=== PATIENT | female | born 1945 | race Hispanic/Latino ===

== ENCOUNTER → 2019-06-15 | Outpatient (CLI) | payer MEDICARE ==
[~2019-06-15] MED LIST: ASPIR 8181 MG PO; DIVALPROEX SOD250 MG PO; GEODON; LISINOPRIL; LISINOPRIL10 MG PO; METFORMIN HCL500 MG PO; PROPRANOLOL; PROPRANOLOL HCL10 MG PO; SIMVASTATIN20 MG PO; VALPROIC ACID; ZIPRASIDONE HCL20 MG PO
--- NOTE | 2019-06-15 14:02 | Diagnostic Imaging Report ---
EXAMINATION: CHEST 2 VIEWS INDICATION: Pre-operative COMPARISON: None FINDINGS: LINES/TUBES:None LUNGS:The lungs are well-inflated. No focal consolidation or pulmonary edema. PLEURA:No pleural effusion or pneumothorax. MEDIASTINUM:The cardiomediastinal silhouette appears normal in size and shape. Circular opacity overlying the right hilum represents part of a sling that is external to the patient. Atherosclerotic calcifications of the thoracic aorta. BONES/SOFT TISSUES:No acute osseous injury. ABDOMEN:No free air under the diaphragm. IMPRESSION: No focal pneumonia or pulmonary edema. Signed by: Sandy Draper MD on 06/15/2019 1:59 PM
== END ==
LOC: RAD 13:19
PROVIDERS: ATTEND Internal Medicine
DX: Z01.818 Encounter for other preprocedural examination (principal)
CPT/HCPCS: 71046; 93005

== ENCOUNTER 2019-06-22 09:45 | Observation (INO) | payer MEDICARE ==
[~2019-06-22] VITALS: Ht 142.2 cm; Wt 72.6 kg
[~2019-06-22 09:45] MED LIST changes: +HEPARIN SOD/SOD CHLORIDE 1,000 ML ONE
--- OUTSIDE RECORDS SUMMARY | 2019-06-22 09:48 | XMS REPORT ---
Author Author [facility] Address Unknown Phone Unavailable Care Team Providers Care Meat Process Worker Name Role Phone NILTON DURAN Unavailable Unavailable Payers Payer Name Policy Type Policy Number Effective Date Expiration Date Problems This patient has no known problems. Allergies, Adverse Reactions, Alerts Allergy Name Allergy Type Status Severity Reaction(s) Onset Date Inactive Date Treating Clinician Comments No Known Allergies DA Active U 2019-05-19 00:00:00 Medications This patient has no known medications. Encounters Start Date/Time End Date/Time Encounter Type Admission Type Attending Clinicians Care Facility Care Department Encounter ID 2019-06-06 18:20:00 2019-06-06 18:20:00 Emergency E [facility] MED [id number] 2019-06-01 19:25:00 2019-06-01 19:25:00 Emergency E [facility] 7500 Results Test Description Test Time Test Comments Text Results Atomic Results Result Comments CHEST 2 VIEWS 2019-06-15 13:57:00 [facility] [address] [place], [place] [address] Patient Name: JAISON CASH MR #: [id number] : 1945 Age/Sex: 73/F Req #: [id number] Adm Physician: Ordered by: NILTON DURAN MD Report #: [id number] Location: [facility] Room/Bed: Procedure: [id number] DX/CHEST 2 VIEWS Exam Date: 06/15/19 Exam Time: 1345 REPORT STATUS: Signed EXAMINATION: CHEST 2 VIEWS INDICATION: Pre-operative COMPARISON: None FINDINGS: LINES/TUBES:None LUNGS:The lungs are well-inflated. No focal consolidation or pulmonary edema. PLEURA:No pleural effusion or pneumothorax. MEDIASTINUM:The cardiomediastinal silhouette appears normal in size and shape. Circular opacity overlying the right hilum represents part of a sling that is external to the patient. Atherosclerotic calcifications of the thoracic aorta. BONES/SOFT TISSUES:No acute osseous injury. ABDOMEN:No free air under the diaphragm. IMPRESSION: No focal pneumonia or pulmonary edema. Si gned by: Isha Draper MD on 06/15/2019 1:59 PM Dictated By: ISHA DRAPER MD [id number] Transcribed By: ARUNA on 06/15/19 0472 COPY TO: NILTON DURAN MD
[2019-06-22] MEDS ORDERED: DEXAMETHASONE SOD PHOS 10 MG/1 ML VIAL ONE (10:22)
[2019-06-22] MEDS ORDERED: CELECOXIB 200 MG CAP ONE (10:22)
[2019-06-22] MEDS ORDERED: GABAPENTIN 300 MG CAP ONE ×2 (10:23→10:27)
[2019-06-22] MEDS ORDERED: CEFAZOLIN SOD 1 GM/NS 50ML 100 ML IV ONE (10:23)
[2019-06-22] MEDS ORDERED: VANCOMYCIN HCL 1 GM VIAL ONE (11:41)
[2019-06-22] MEDS ORDERED: BUPIVACAINE 0.25%/EPI 30ML SDV INJ ONE (11:41)
[2019-06-22] MEDS ORDERED: TRANEXAMIC ACID 1,000 MG/10 ML ML ONE (11:41)
[2019-06-22] MEDS ORDERED: SODIUM CHLORIDE 0.9% 500ML 500 ML ONE (11:49)
[2019-06-22] MEDS ORDERED: ACETAMINOPHEN 1000 MG/100 ML 100 ML IV ONE (12:58)
[2019-06-22] MEDS ORDERED: HYDROCODONE/APAP 7.5MG-325MG 1 EA TAB PO PRN (13:30)
[2019-06-22] MEDS ORDERED: KETOROLAC TROMETHAMINE 30 MG/ML VIAL IV PRN (13:30)
[2019-06-22] MEDS ORDERED: ZOLPIDEM TARTRATE 5 MG TAB PO PRN (13:30)
[2019-06-22] MEDS ORDERED: ONDANSETRON HCL INJ 2MG/ML 2ML 2 MG/ML VIAL IV PRN (13:30)
[2019-06-22] MEDS ORDERED: PROMETHAZINE HCL (IM) 25 MG/ML VIAL INJ PRN (13:30)
[2019-06-22] MEDS ORDERED: ACETAMINOPHEN 650 MG SUPP PR PRN (13:30)
[2019-06-22] MEDS ORDERED: DOCUSATE SODIUM 100 MG CAP PO PRN (13:30)
[2019-06-22] MEDS ORDERED: DIPHENHYDRAMINE HCL INJ 50 MG/ML VIAL IM/IV PRN (13:30)
[2019-06-22] MEDS ORDERED: PHENYLEPHRINE HCL 1% 10 MG/ML VIAL ONE (14:26)
[2019-06-22] MEDS ORDERED: NEOSTIGMINE 5 MG/5ML SYR ONE (14:26)
[2019-06-22] MEDS ORDERED: ONDANSETRON HCL INJ 2MG/ML 2ML 2 MG/ML VIAL ONE (14:26)
[2019-06-22] MEDS ORDERED: DEXAMETHASONE SOD PHOS INJ 4 MG/ML VIAL ONE (14:26)
[2019-06-22] MEDS ORDERED: ROCURONIUM BROMIDE 10 MG/ML 5ML VIAL ONE (14:26)
[2019-06-22] MEDS ORDERED: GLYCOPYRROLATE INJ 1MG/ 5 ML SYR ONE (14:26)
[2019-06-22] MEDS ORDERED: PROPOFOL IV EMULSION 10 MG/ML 20 ML VIAL ONE (14:26)
[2019-06-22] MEDS ORDERED: LIDOCAINE HCL 2% LOCAL INJ 5 ML SDV VIAL INJ ONE (14:26)
[2019-06-22] MEDS ORDERED: SEVOFLURANE INHAL SOLN 250 ML PEN BTL ONE (14:26)
[2019-06-22] MEDS ORDERED: ROPIVACAINE 0.5% 5 MG/ML 30 ML SDV ONE (14:48)
[2019-06-22] MEDS ORDERED: LIDOCAINE HCL 2% LOCAL 20 ML VIAL ONE (14:48)
[2019-06-22] MEDS ORDERED: FENTANYL CITRATE/PF 100MCG/2 ML INJ ONE (15:01)
[2019-06-22] MEDS ORDERED: MIDAZOLAM HCL 2 MG/2 ML VIAL ONE (15:01)
--- NOTE | 2019-06-22 15:05 | Diagnostic Imaging Report ---
EXAMINATION: SHOULDER RIGHT 1 VIEW INDICATION: Postoperative COMPARISON: None FINDINGS: Portable AP image of the right shoulder was obtained. There are postoperative findings of interval right shoulder hemiarthroplasty. Alignment is near-anatomic. There is postoperative subcutaneous emphysema. Overlying surgical skin manuela in place. No focal consolidation of the partially visualized right lung. IMPRESSION: Anatomic alignment status post interval right shoulder hemiarthroplasty. Signed by: Sandy Draper MD on 06/22/2019 3:02 PM
[2019-06-22] MEDS: SODIUM CHLORIDE 0.9% 1000ML 1,000 ML IV SCH (15:52)
[2019-06-22 16:59] VITALS: BP 159/70
[2019-06-22 17:30] VITALS: BP 159/70
[2019-06-22 17:31] VITALS: BP 159/70
[2019-06-22] MEDS: CELECOXIB 200 MG CAP PO SCH (17:37)
[2019-06-22] MEDS: ASPIRIN 325 MG TAB PO SCH (17:37)
[2019-06-22] MEDS: ACETAMINOPHEN 1000 MG/100 ML IV SCH (17:38)
[2019-06-22 20:00] VITALS: BP 134/60
[2019-06-22] MEDS: CEFAZOLIN SOD 1 GM/NS 50ML 50 ML IV SCH (20:00)
--- NOTE | 2019-06-22 20:00 | NUR ---
Received change of shift report from AM nurse. Walking rounds completed.
--- NOTE | 2019-06-22 20:10 | Operative Report ---
DATE OF PROCEDURE: 06/22/2019 SURGEON: Tevin Jorgensen MD PAPERHANGER PIPE: Richard Mike PA-C PREOPERATIVE DIAGNOSIS: Comminuted 4-part right proximal humerus fracture. POSTOPERATIVE DIAGNOSIS: Comminuted 4-part right proximal humerus fracture. PROCEDURE: Right shoulder hemiarthroplasty. INDICATIONS: The patient is a medically frail 73-year-old lady, who has a fracture of her right proximal humerus. The findings and options have been discussed. We have recommended a right shoulder hemiarthroplasty. The risks and benefits and realistic expectations have been discussed. She states she understands and wishes to proceed. PROCEDURE IN DETAIL: The patient was brought to the operating room and placed under general anesthetic. She received a regional block and prophylactic antibiotics in the holding area. She was positioned in the beach chair position on the shoulder table. Her right upper extremity was prepped and draped in a sterile manner. A preoperative time-out was performed. A 10 mL of 0.5% Marcaine with epinephrine had been injected into the axillary fold during prepping. An incision was made over the anterior aspect of the right shoulder. The deltopectoral interval was identified. Hemostasis was obtained along the way with electrocautery. The subdeltoid tissue was freed up to allow placement of a Best [place] self-retaining retractor. This was placed into the conjoined tendon in the deltoid. The fracture sites were palpated. The lesser tuberosity was gently mobilized. Retention stitches were placed in the myotendinous junction. The same was done with the greater tuberosity. There was some persistent soft tissue attachments I wanted to preserve. The biceps tendon was released. The humeral head could be visualized and was removed from the joint using a towel clamp. This was sized at roughly 40 mm in diameter. The fracture was further mobilized. A NuScriptRx global fracture system was used. The canal was reamed and broached. The size 10 reamer had good endosteal contact. A size 10 stem had good rotational stability. A trial reduction was made with a 40 mm x 15 mm humeral head provided appropriate mandaen of length and stability. The trial implants were removed. The shoulder was thoroughly irrigated with sterile saline. The implants were opened on the back table and the press-fit stem was impacted into the humeral shaft. Good stability was accomplished. The humeral head was seated onto the clean and dry stem. The stem had previously had #1 FiberWire stitches placed so that they could circumferentially encase and secure the greater and lesser tuberosities. Time and care were taken to repair the greater tuberosities to the anterior and superior aspect of the proximal humerus. A cerclage FiberWire was placed around the split in the humeral shaft as well. The rotator interval was repaired with interrupted #1 ethibond stitches. The wound was further irrigated. The skin was closed with subcuticular Vicryl and manuela. A sterile bandage and an UltraSling were applied. Estimated blood loss was 100 mL. All needle and sponge counts were correct. Tevin Jorgensen MD DR/KENDALL /[id number] MTDD
[2019-06-22] MEDS: HYDROCODONE/APAP 5MG-325MG TAB PO PRN (20:48)
[2019-06-23] VITALS: BP 118/65
[2019-06-23] MEDS: SODIUM CHLORIDE 0.9% 1000ML 1,000 ML IV SCH ×2 (03:00→09:31)
[2019-06-23] MEDS: CEFAZOLIN SOD 1 GM/NS 50ML 50 ML IV SCH ×2 (03:42→11:39)
[2019-06-23 04:00] VITALS: BP 142/62
--- NOTE | 2019-06-23 05:00 | NUR ---
Received pain and nausea meds x2. Resting quitly at this time.
[2019-06-23] MEDS: ACETAMINOPHEN 1000 MG/100 ML IV SCH ×3 (05:41→14:16)
[2019-06-23] MEDS: HYDROCODONE/APAP 5MG-325MG TAB PO PRN ×2 (06:09→11:39)
[2019-06-23 06:18] LABS: HEMATOCRIT 29.8 % (34.2-44.1); HEMOGLOBIN 9.8 g/dL (12.0-16.0)
[2019-06-23 07:26] VITALS: BP 146/61
[2019-06-23] MEDS: CELECOXIB 200 MG CAP PO SCH (09:19)
[2019-06-23] MEDS: ASPIRIN 325 MG TAB PO SCH (09:19)
[2019-06-23 09:26] VITALS: BP 146/61
--- NOTE | 2019-06-23 12:35 | Consultation ---
DATE OF CONSULTATION: REASON FOR CONSULTATION: Postop medical management. HISTORY OF PRESENT ILLNESS: The patient is a 73-year-old lady, status post right shoulder replacement, who is doing well postoperatively and has minimal pain in her right shoulder. REVIEW OF SYSTEMS: Denies on review of systems any fever, chills, nausea, vomiting, headache, shortness of breath, dizziness, or chest pains. PAST MEDICAL HISTORY: Significant for hypertension, hyperlipidemia, and diabetes. MEDICATIONS: See MAR. ALLERGIES: NONE. SOCIAL HISTORY: PHYSICAL EXAMINATION: VITAL SIGNS: Temperature 96.5, pulse 65, blood pressure 134/60, sats 94% on room air. GENERAL: She is in no apparent distress, lying in bed. NECK: Supple. No lymphadenopathy. CARDIOVASCULAR: Regular rate and rhythm. LUNGS: Clear to auscultation bilaterally. ABDOMEN: Good bowel sounds. Soft, nontender. EXTREMITIES: No clubbing or cyanosis. The right shoulder is in a brace. She has 2+ radial pulses on the right. NEUROVASCULAR: Intact on the right. ASSESSMENT AND PLAN: 1. Right shoulder pain, status post right shoulder hemiarthroplasty. We will continue with postoperative care. 2. Anemia. Check a CBC. 3. Hypertension. Continue with current care and monitoring. 4. Diabetes. Continue to monitor her sugars. 5. Hyperlipidemia. We will restart cholesterol medicines at discharge. Please see hospital chart for details. MD JUN Sol/KENDALL /[id number]
[2019-06-23 13:06] VITALS: BP 122/59
[2019-06-23] MEDS ORDERED: HYDRALAZINE HCL 20 MG/ML VIAL IV PRN (13:15)
[2019-06-23] MEDS ORDERED: ACETAMINOPHEN 1000 MG/100 ML IV PRN (13:30)
--- NOTE | 2019-06-23 15:00 | NUR ---
Visit made by the Spiritual Care Department Pastoral Visitor, Dionne Dupree. PV provided pastoral presence, prayer, hospitality, and supportive listening. Pastoral Visitor informed pt/family of the scope of [employer] and availability. BROCK VALDEZ Solar Project Coordination Specialist Spiritual Care Department O: [phone] Pager: [phone] ([phone] number calling from)
--- NOTE | 2019-06-23 15:49 | NUR ---
PATIENT COMPLAINED THAT SHE NEEDS HELP AT HOME CALLED [facility]N MEYER FOR DR. AGUSTIN TO REQUEST CONSULT FOR CASE MANAGEMENT
[2019-06-23 16:01] VITALS: BP 125/58
--- NOTE | 2019-06-23 16:25 | NUR ---
CM CALLED TO PT'S ROOM BY PT'S NURSE REY STATING PT IS REQUESTING HOME HEALTH CARE PT'S DTR AT BEDSIDE, AKIN CASH [phone] THEY ARE REQUESTING HOME HEALTH "SO SOMEONE CAN HELP HER GET AROUND" PT LIVES WITH HER , GROWN SON AND 4 GRAND CHILDREN PT'S DTR AKIN WILL BE WITH PT FOR NEXT 3 DAYS AND THEN WILL HAVE TO GO BACK TO WORK EXPLAINED THAT CRITERIA MUST BE MET FOR INSURANCE TO PAY FOR HOME HEALTH PT AMBULATING WITH RIGHT ARM SLING WITHOUT DIFFICULTY NURSE LE CALLED VAISHNA[facility] WITH DR AGUSTIN AND ASKED FOR HOME HEALTH ORDER ADÁN STATES NO MEDICAL NECESSITY FOR HOME HEALTH CARE
== END 2019-06-23 17:30 | disposition home or self-care (01) ==
LOC: OR 09:45 → PACU V 13:31 → MED/SURG 15:20
PROVIDERS: ADMIT Specialist; ATTEND Specialist
DX: S42.241A 4-part fracture of surgical neck of right humerus, initial encounter for closed fracture (principal); S93.622A Sprain of tarsometatarsal ligament of left foot, initial encounter; F31.9 Bipolar disorder, unspecified; Z85.3 Personal history of malignant neoplasm of breast; I10 Essential (primary) hypertension; Z90.49 Acquired absence of other specified parts of digestive tract; Z82.49 Family history of ischemic heart disease and other diseases of the circulatory system; D64.9 Anemia, unspecified; E11.9 Type 2 diabetes mellitus without complications; E78.5 Hyperlipidemia, unspecified; Z79.82 Long term (current) use of aspirin; Z79.84 Long term (current) use of oral hypoglycemic drugs
CPT/HCPCS: 23470; 36415 ×2; 73020; 82948 ×2; 85014; 85018; 86850; 86900; 96360; 96361; 97116 ×2; 97161; 97530; C1713; C1751; G0378 ×2; J0131 ×2; J0690 ×2; J1100 ×2; J1885; J2001 ×2; J2250; J2370; J2405; J2704; J2795; J3010; J3370; J3490; J7030 ×2; J7040

== ENCOUNTER 2020-04-05 06:49 | Observation (INO) | payer MEDICARE, OTHER ==
[2020-03-24 13:14] LABS: BASOPHILS % 0.6 % (0.0-1.0); EOSINOPHILS # (AUTO) 0.1 (0.0-0.4); EOSINOPHILS % 1.4 % (0.0-6.0); HEMATOCRIT 34.4 % (34.2-44.1); HEMOGLOBIN 11.1 g/dL (12.0-16.0); LYMPHOCYTES # (AUTO) 2.2 (1.0-3.2); LYMPHOCYTES % 33.1 % (18.0-39.1); MEAN CORPUSCULAR HEMOGLOBIN 31.9 pg (28-32); MEAN CORPUSCULAR HGB CONC 32.3 g/dL (31-35); MEAN CORPUSCULAR VOLUME 98.9 fL (81-99); MONOCYTES # (AUTO) 0.6 (0.2-0.8); MONOCYTES % 8.9 % (4.4-11.3); NEUTROPHILS # (AUTO) 3.7 (2.1-6.9); NEUTROPHILS % 55.2 % (38.7-80.0); PLATELET COUNT 135 x10e3/uL (140-360); RED BLOOD COUNT 3.48 x10e6/uL (3.6-5.1)
[2020-03-24 13:34] LABS: ANION GAP 11.9 mmol/L (8-16); CALCIUM 9.5 mg/dL (8.4-10.2); CREATININE, SERUM 1.11 mg/dL (0.57-1.11); POTASSIUM 3.9 mmol/L (3.5-5.1)
[2020-04-01 11:07] LABS: BASOPHILS % 0.6 % (0.0-1.0); EOSINOPHILS # (AUTO) 0.1 (0.0-0.4); EOSINOPHILS % 1.8 % (0.0-6.0); HEMATOCRIT 34.1 % (34.2-44.1); HEMOGLOBIN 10.9 g/dL (12.0-16.0); LYMPHOCYTES # (AUTO) 2.2 (1.0-3.2); LYMPHOCYTES % 32.6 % (18.0-39.1); MEAN CORPUSCULAR HEMOGLOBIN 31.8 pg (28-32); MEAN CORPUSCULAR VOLUME 99.4 fL (81-99); MONOCYTES # (AUTO) 0.6 (0.2-0.8); MONOCYTES % 9.1 % (4.4-11.3); NEUTROPHILS # (AUTO) 3.8 (2.1-6.9); NEUTROPHILS % 55.5 % (38.7-80.0); PLATELET COUNT 160 x10e3/uL (140-360); RED BLOOD COUNT 3.43 x10e6/uL (3.6-5.1); RED CELL DISTRIBUTION WIDTH 13.2 % (11.7-14.4)
--- NOTE | 2020-04-01 11:23 | Diagnostic Imaging Report ---
EXAMINATION: CHEST 2 VIEWS INDICATION: ^[id number] ^[id number] ^PRE-OP COMPARISON: Chest radiograph 06/15/2019 FINDINGS: PA and lateral views TUBES and LINES: None. LUNGS: Lungs are well inflated. Lungs are clear. There is no evidence of pneumonia or pulmonary edema. PLEURA: No pleural effusion or pneumothorax. HEART AND MEDIASTINUM: The cardiomediastinal silhouette is unremarkable. Tortuous thoracic aorta. BONES AND SOFT TISSUES: Partially visualized prosthesis in the right humerus. Soft tissues are unremarkable. UPPER ABDOMEN: No free air under the diaphragm. IMPRESSION: No acute thoracic abnormality. Signed by: Dr. Lisa Rick M.D. on 04/01/2020 11:20 AM
[2020-04-01 11:27] LABS: ANION GAP 14.1 mmol/L (8-16); CREATININE, SERUM 1.06 mg/dL (0.57-1.11); POTASSIUM 4.1 mmol/L (3.5-5.1)
[~2020-04-05] VITALS: Ht 149.9 cm; Wt 75.3 kg
[~2020-04-05 06:49] MED LIST changes: +GLIPIZIDE5 MG PO; -HEPARIN SOD/SOD CHLORIDE 1,000 ML ONE; +ULTRAM 50MG50 MG PO; +VITAMIN D PO
[2020-04-05] MEDS ORDERED: GABAPENTIN 300 MG CAP ONE (07:49)
[2020-04-05] MEDS ORDERED: DEXAMETHASONE SOD PHOS 10 MG/1 ML VIAL ONE (07:49)
[2020-04-05] MEDS ORDERED: CELECOXIB 200 MG CAP ONE (07:49)
[2020-04-05] MEDS ORDERED: CEFAZOLIN SOD 1 GM/NS 50ML 100 ML IV ONE (07:50)
[2020-04-05] MEDS ORDERED: BACITRACIN 50,000 UNIT VIAL ONE (09:57)
[2020-04-05] MEDS ORDERED: ACETAMINOPHEN 650 MG SUPP PR PRN (11:15)
[2020-04-05] MEDS ORDERED: HYDROCODONE/APAP 5MG-325MG TAB PO PRN (11:15)
[2020-04-05] MEDS ORDERED: DOCUSATE SODIUM 100 MG CAP PO PRN (11:15)
[2020-04-05] MEDS ORDERED: ONDANSETRON HCL INJ 2MG/ML 2ML 2 MG/ML VIAL IV PRN (11:15)
[2020-04-05] MEDS ORDERED: KETOROLAC TROMETHAMINE 30 MG/ML VIAL IV PRN (11:15)
[2020-04-05] MEDS ORDERED: HYDROCODONE/APAP 7.5MG-325MG 1 EA TAB PO PRN (11:15)
[2020-04-05] MEDS ORDERED: DIPHENHYDRAMINE HCL INJ 50 MG/ML VIAL IV PRN (11:15)
--- NOTE | 2020-04-05 12:26 | Operative Report ---
DATE OF PROCEDURE: 04/05/2020 SURGEON: Tevin Jorgensen MD LENS GRINDER: Richard Mike, certified PA. PREOPERATIVE DIAGNOSIS: Right humeral shaft periprosthetic fracture. POSTOPERATIVE DIAGNOSIS: Right humeral shaft periprosthetic fracture. PROCEDURE: Open reduction and internal fixation right humerus periprosthetic fracture. INDICATIONS: The patient is a 74-year-old lady who is status post a right shoulder replacement. She fell and sustained a fracture at the tip of the stem. This is completely displaced and comminuted. The stem is not loose. The findings and options have been discussed with the patient. She has been through preoperative medical clearance. We plan on an open reduction with internal fixation. The risks and benefits have been thoroughly discussed. She states she understands and wishes to proceed. PROCEDURE IN DETAIL: The patient was brought to the operating room and placed under general anesthetic. She received a regional block, tranexamic acid and prophylactic antibiotics in the holding area. She was positioned in the left lateral decubitus position. Her right upper extremity was prepped and draped in a sterile manner. A preoperative time-out was performed. A posterior approach was made to the right arm. Blunt dissection was carried down to the triceps muscles. The radial neurovascular bundle was carefully dissected out and protected with a 0.5 inch [place] drain. This was used to mobilize and expose the fracture site. The fracture was reduced. A Osman/Biomet cable plate was placed onto the humeral shaft. This was locked with three proximal cables and a combination of locking and compression screws distally. Intraoperative x-ray confirmed satisfactory reduction and positioning of all the hardware. 5 mL of DBX bone putty was placed around the fracture site. This was done after thoroughly irrigating the wound. The fascia was closed with 0 Vicryl. The skin was closed with subcuticular Vicryl and manuela. A sterile bandage and a well-padded posterior splint were applied. The patient was extubated and transported to the recovery room in stable condition. Blood loss was approximately 50 mL. At the end of the procedure, all needle and sponge counts were correct. Tevin Jorgensen MD DR/KENDALL /[id number]
--- NOTE | 2020-04-05 14:20 | NUR ---
RECEIVED PATIENT FROM PACU. PATIENT A/O X3, EVEN RESPIRATIONS ON RA. LUNG SOUNDS CLEAR. RIGHT ARM FREDY BANDAGE IN PLACE. DRESSING C/D/I. LEFT FA 20 GAUGE IV WITH NS @ 100. SCD'S IN PLACE. DENIES PAIN AT THIS TIME. PATIENT HAS VOIDED SINCE SURGERY.
[2020-04-05 15:06] LABS: BASOPHILS % 0.2 % (0.0-1.0); HEMATOCRIT 33.1 % (34.2-44.1); HEMOGLOBIN 10.5 g/dL (12.0-16.0); LYMPHOCYTES # (AUTO) 1.2 (1.0-3.2); LYMPHOCYTES % 15.4 % (18.0-39.1); MEAN CORPUSCULAR HEMOGLOBIN 32.2 pg (28-32); MEAN CORPUSCULAR HGB CONC 31.7 g/dL (31-35); MEAN CORPUSCULAR VOLUME 101.5 fL (81-99); MONOCYTES # (AUTO) 0.3 (0.2-0.8); MONOCYTES % 3.5 % (4.4-11.3); NEUTROPHILS # (AUTO) 6.5 (2.1-6.9); NEUTROPHILS % 80.4 % (38.7-80.0); PLATELET COUNT 146 x10e3/uL (140-360); RED BLOOD COUNT 3.26 x10e6/uL (3.6-5.1); RED CELL DISTRIBUTION WIDTH 13.2 % (11.7-14.4)
[2020-04-05 15:25] LABS: ANION GAP 13.8 mmol/L (8-16); CALCIUM 8.8 mg/dL (8.4-10.2); CREATININE, SERUM 1.09 mg/dL (0.57-1.11); POTASSIUM 4.8 mmol/L (3.5-5.1)
[2020-04-05] MEDS: CEFAZOLIN SOD 1 GM/NS 50ML 50 ML IV SCH (15:57)
[2020-04-05] MEDS: SODIUM CHLORIDE 0.9% 1000ML 1,000 ML IV SCH (15:57)
[2020-04-05 16:00] VITALS: BP 149/61
[2020-04-05 16:04] VITALS: BP 149/61
[2020-04-05] MEDS: CELECOXIB 200 MG CAP PO SCH (16:04)
[2020-04-05 16:25] VITALS: BP 149/61
[2020-04-05] MEDS ORDERED: DEXTROSE 50% SYRINGE 50 ML IV PRN (16:45)
[2020-04-05 20:00] VITALS: BP 146/71
[2020-04-05] MEDS: ASPIRIN 325 MG TAB PO SCH (20:00)
[2020-04-05] MEDS ORDERED: ZOLPIDEM TARTRATE 5 MG TAB PO PRN (21:00)
[2020-04-05] MEDS: INSULIN REGULAR, HUMAN 100 UNIT/1 ML 3ML VIAL SQ SCH (22:36)
[2020-04-05 22:38] VITALS: BP 146/71
[2020-04-06 00:34] VITALS: BP 122/74
[2020-04-06] MEDS: CEFAZOLIN SOD 1 GM/NS 50ML 50 ML IV SCH ×2 (01:02→09:10)
[2020-04-06] MEDS: SODIUM CHLORIDE 0.9% 1000ML 1,000 ML IV SCH (01:02)
[2020-04-06 04:00] VITALS: BP 114/48
[2020-04-06 04:54] LABS: HEMATOCRIT 29.3 % (34.2-44.1); HEMOGLOBIN 9.3 g/dL (12.0-16.0)
--- NOTE | 2020-04-06 05:40 | Consultation ---
DATE OF CONSULTATION: REASON FOR CONSULTATION: Postop medical management. HISTORY OF PRESENT ILLNESS: The patient is a lady, status post right humeral periprosthetic fracture repair, who is doing well postoperatively and states her pain is well-controlled, currently at 3/10 and she denies any fever, chills, nausea, vomiting, headache, shortness of breath, or dizziness on review of systems. PAST MEDICAL HISTORY: Significant for hypertension, history of breast cancer, diabetes, and bipolar disorder. MEDICATIONS: See MAR. ALLERGIES: NONE. SOCIAL HISTORY: She is . Lives at home. Nonsmoker, nondrinker. FAMILY HISTORY: Hypertension. PHYSICAL EXAMINATION: VITAL SIGNS: Temperature 98.0, pulse 74, blood pressure 122/74, sats 98% on room air. GENERAL: No apparent distress, lying in bed. Right arm is in a sling. NECK: Supple. CARDIOVASCULAR: Regular rate and rhythm. LUNGS: Clear to auscultation bilaterally. ABDOMEN: Good bowel sounds. Soft and nontender. EXTREMITIES: No clubbing or cyanosis. She has 2+ radial pulse on the right side. NEUROLOGIC: She is able to move all extremities, but the right arm is in a sling, but she is able move all her fingers on the right arm. ASSESSMENT AND PLAN: 1. Status post right humeral fracture repair. Continue with postoperative care. 2. Right arm pain. We will continue with pain control. 3. Diabetes. Continue to monitor her sugars. 4. Anemia. Monitor CBCs. 5. Hypertension. We will continue to monitor. 6. History of bipolar disorder. Continue with current care and monitoring and restart her medications. Please see hospital chart for details. MD JUN Sol/KENDALL /[id number]
[2020-04-06 08:00] VITALS: BP 129/60
[2020-04-06] MEDS: INSULIN REGULAR, HUMAN 100 UNIT/1 ML 3ML VIAL SQ SCH ×2 (08:30→12:30)
[2020-04-06] MEDS: CELECOXIB 200 MG CAP PO SCH (08:33)
[2020-04-06] MEDS: ASPIRIN 325 MG TAB PO SCH (08:33)
[2020-04-06] MEDS ORDERED: ONDANSETRON HCL 4 MG ORAL DISINTEGRATING TAB PO PRN (10:30)
[2020-04-06] MEDS ORDERED: ACETAMINOPHEN 1000 MG/100 ML IV PRN (11:15)
[2020-04-06 11:57] VITALS: BP 116/45
--- NOTE | 2020-04-06 13:10 | NUR ---
Discharge instructions given to the patient , she verbalized understanding. There are no prescriptions to be given. IV was removed with tip intact.
== END 2020-04-06 14:38 | disposition home or self-care (01) ==
LOC: OR 06:49 → PACU V 12:54 → MED/SURG 14:32
PROVIDERS: ADMIT Specialist; ATTEND Specialist
DX: S42.351A Displaced comminuted fracture of shaft of humerus, right arm, initial encounter for closed fracture (principal); T84.018A Broken internal joint prosthesis, other site, initial encounter; Z96.611 Presence of right artificial shoulder joint; F31.9 Bipolar disorder, unspecified; Z85.3 Personal history of malignant neoplasm of breast; I10 Essential (primary) hypertension; Z90.49 Acquired absence of other specified parts of digestive tract; Z82.49 Family history of ischemic heart disease and other diseases of the circulatory system; E11.9 Type 2 diabetes mellitus without complications; D64.9 Anemia, unspecified; Z11.59 Encounter for screening for other viral diseases; Z01.810 Encounter for preprocedural cardiovascular examination; Z01.812 Encounter for preprocedural laboratory examination; Z01.818 Encounter for other preprocedural examination; Z79.82 Long term (current) use of aspirin; Z79.84 Long term (current) use of oral hypoglycemic drugs
CPT/HCPCS: 24515; 36415 ×4; 71046; 76000; 80048 ×3; 82948 ×2; 85014; 85018; 85025 ×3; 86850 ×2; 86900 ×2; 86920 ×2; 87635 ×2; 93005; 97116 ×2; 97139; 97162; 97530 ×2; C1713; G0378 ×2; J0690 ×2; J1100; J1817; J7030 ×2

== ENCOUNTER → 2021-02-24 | Outpatient (CLI) | payer MEDICARE ==
[~2021-02-24] MED LIST changes: +REGADENOSON 0.4 MG/5 ML SYR IV ONE
== END ==
LOC: RAD 09:02
PROVIDERS: ATTEND Internal Medicine
DX: R07.9 Chest pain, unspecified (principal)
CPT/HCPCS: 78452; 93017; 93306; A9502; J2785